=== PATIENT | male | born 1990 | race Caucasian/White ===

== ENCOUNTER 2018-09-16 12:55 | Emergency (ER) | payer OTHER ==
[~2018-09-16] VITALS: Ht 172.7 cm; Wt 80.0 kg
[2018-09-16 13:02] VITALS: Ht 172.7 cm; Wt 80.0 kg
[2018-09-16] MEDS ORDERED: ALBUTEROL 0.5% (NEB) 2.5 MG/0.5 ML AMP NEB STA (13:09)
[2018-09-16] MEDS ORDERED: DEXAMETHASONE (1 MG/ML PO SYG) PO ONE (13:30)
[2018-09-16] MEDS ORDERED: AZIT250T PO (14:38)
[2018-09-16] MEDS ORDERED: ALBU8.5H8 INH (14:38)
[2018-09-16] MEDS ORDERED: BENZ-6 PO (14:38)
[2018-09-16] MEDS ORDERED: ALBUTEROL 0.5% (NEB) 2.5 MG/0.5 ML AMP INH STA (14:55)
[2018-09-16] MEDS ORDERED: IPRATROPIUM (NEB) 0.5 MG/2.5 ML AMP INH STA ×2 (14:55→15:27)
--- NOTE | 2018-09-16 14:58 | ERD ---
ER Documentation Chief Complaint Chief Complaint c/o asthma excerbation started today, ran out of inhaler (STONE NICE PA-C) HPI 28-year-old male history of asthma presents complaining of shortness of breath and wheezing since this morning. Patient states that he ran out of his inhaler. Admits to cough. Denies any fevers, chest pain, nausea vomiting diarrhea (STONE NICE PA-C) ROS All systems reviewed and are negative except as per history of present illness. (STONE NICE PA-C) Medications Home Meds Active Scripts Azithromycin* (Zithromax*) 250 Mg Tablet, 250 MG PO .ZPACK DIRECTED, #6 TAB TAKE 500 MG (2 TABS) THE FIRST DAY THEN 250 MG (1 TAB) DAYS 2-5 Prov:STONE NICE PA-C 09/16/18 Benzonatate* (Tessalon Perle*) 100 Mg Capsule, 100 MG PO Q8H PRN for COUGH, #30 CAP Prov:STONE NICE PA-C 09/16/18 Albuterol Sulfate* (Proair HFA*) 8.5 Gm Hfa.aer.ad, 2 PUFF INH Q6, #1 INHALER Prov:STONE NICE PA-C 09/16/18 PMhx/Soc Medical and Surgical Hx: pt denies Surgical Hx History of Surgery: No Hx Respiratory Disorders: Yes (asthma) Hx Cardiac Disorders: No Hx Psychiatric Problems: No Hx Miscellaneous Medical Probl: No Hx Alcohol Use: No Hx Substance Use: No Hx Tobacco Use: Yes Smoking Status: Current some day smoker (STONE NICE PA-C) Physical Exam Vitals Vital Signs Date Temp Pulse Resp B/P (MAP) Pulse Ox O2 O2 Flow FiO2 Time Delivery Rate 09/16/18 97.8 90 20 142/87 94 Room Air 16:27 (105) 09/16/18 90 22 88 21 15:13 09/16/18 103 24 96 21 13:26 09/16/18 97.1 117 24 165/93 90 13:02 (117) (OLGA CASEY MD) Physical Exam Const: No acute distress Head: Atraumatic Eyes: Normal Conjunctiva ENT: Normal External Ears, Nose and Mouth. Neck: Full range of motion. No meningismus. Resp: WHEEZING bilaterally Cardio: Regular rate and rhythm, no murmurs Abd: Soft, non tender, non distended. Normal bowel sounds Skin: No petechiae or rashes Back: No midline or flank tenderness Ext: No cyanosis, or edema Neur: Awake and alert Psych: Normal Mood and Affect (STONE NICE PA-C) Results 24 hrs Current Medications Medications Dose Sig/Jacki Start Time Status Last (Trade) Ordered Route PRN Stop Time Admin Dose Reason Admin Albuterol 10 mg ONCE STAT 09/16/18 DC 09/16/18 (Proventil NEB 13:09 09/16/18 13:25 0.5% (Neb)) 13:11 10 mg ONCE ONCE 09/16/18 DC 09/16/18 Dexamethasone PO 13:30 09/16/18 13:39 (Decadron 13:31 Intensol Liquid) Albuterol 5 mg ONCE STAT 09/16/18 DC 09/16/18 (Proventil INH 14:55 09/16/18 15:13 0.5% (Neb)) 15:55 Ipratropium 1 mg ONCE STAT 09/16/18 DC 09/16/18 [place] INH 14:55 09/16/18 15:13 (Atrovent 14:56 0.02% (Neb)) 5 mg ONCE STAT 09/16/18 DC Levalbuterol INH 15:27 09/16/18 (Xopenex 15:29 Neb) Ipratropium 1 mg ONCE STAT 09/16/18 DC [place] INH 15:27 09/16/18 (Atrovent 15:55 0.02% (Neb)) Magnesium 50 ml @ 25 ONCE STAT 09/16/18 DC Sulfate mls/hr IVPB 15:27 09/16/18 15:55 (OLGA CASEY MD) Procedures/MDM 28-year-old male patient presents to the ER with asthma exacerbation, low suspicion for status asthmaticus, pneumonia, inhaled foreign body, or other life threatening pulmonary emergencies due to physical examination. RT was consulted in the ED, breathing treatment, Decadron was administered. Patient was saturating well on room air and wheezing improved. Hemodynamically stable. Patient was saturating well on room air and shortness of breath improved. Prescription for albuterol was given, discussed to have a close follow-up with a primary care physician, discussed to return to the ED if not improving as expected or if condition worsens. Patient understood and agreed with this plan. (STONE NICE PA-C) Departure Diagnosis: Primary Impression: Asthma Condition: Stable Patient Instructions: Asthma, Acute (Child) Referrals: [facility] (PCP) Additional Instructions: FOLLOW UP WITH YOUR PRIMARY CARE PHYSICIAN TOMORROW.Return to this facility if you are not improving as expected. Take all medicines as directed. Return to this facility if you are not improving as expected. STONE NICE PA-C Sep 16, 2018 14:58 OLGA CASEY MD Sep 16, 2018 20:04
[2018-09-16] MEDS ORDERED: LEVALBUTEROL (NEB) 1.25 MG/0.5 ML AMP INH STA (15:27)
[2018-09-16] MEDS ORDERED: MAGNESIUM SULFATE 2 GM/50 ML 50 ML IVPB STA (15:27)
[2018-09-16 16:27] VITALS: BP 142/87; PULSE 90; RESP 20
== END 2018-09-16 16:35 | disposition home or self-care (01) ==
LOC: FTE 12:55
DX: J45.901 Unspecified asthma with (acute) exacerbation (principal); F17.210 Nicotine dependence, cigarettes, uncomplicated
CPT/HCPCS: 94644; 94645; Z7502; Z7610